=== PATIENT | female | born 1965 | race American Indian/Alaskan Native ===

== ENCOUNTER 2016-07-27 15:55 | Outpatient (CLI) | payer OTHER ==
--- NOTE | 2016-07-28 14:00 | Mammography Report ---
BILATERAL DIGITAL SCREENING MAMMOGRAM with CAD: 07/27/16 15:55:00 CLINICAL: Routine screening. COMPARISON:05/20/15 FINDINGS: The breasts are heterogeneously dense, which may obscure small masses. A left upper asymmetry requires additional imaging.No architectural distortion or suspicious calcifications.The right breast is negative. IMPRESSION: Left asymmetry requiring further workup. BI-RADS CATEGORY: 0 -- Additional Imaging Evaluation Required RECOMMENDATION: Recall for left mediolateral , exaggerated CC and spot compression MLO views and left ultrasound if needed. ACR BI-RADS MAMMOGRAPHIC CODES: 0 = Needs additional imaging evaluation; 1 = Negative; 2 = Benign; 3 = Probably benign; 4 = Suspicious; 5 = Malignant; 6 = Known biopsy-proven malignancy COMMENT: 1. Dense breast tissue, i.e., adenosis, fibrocystic changes, etc., may obscure an underlying neoplasm. 2. Approximately 10% of cancers are not detected with mammography. 3. A negative mammography report should not delay biopsy if a clinically suspicious mass is present. COMMENT: Patient follow-up letters are generated via our [employer] application.
== END 2016-07-27 15:56 | disposition home or self-care (01) ==
LOC: SPVWC 15:55
PROVIDERS: ATTEND Obstetrics & Gynecology
DX: Z12.31 Encounter for screening mammogram for malignant neoplasm of breast (principal)
CPT/HCPCS: 77067; G0202

== ENCOUNTER 2016-08-12 15:13 | Outpatient (CLI) | payer OTHER ==
--- NOTE | 2016-08-12 16:08 | Mammography Report ---
LEFT DIGITAL DIAGNOSTIC MAMMOGRAM and LEFT BREAST ULTRASOUND: 08/12/16 15:13:00 CLINICAL: Recalled for asymmetry. COMPARISON:07/27/16 screening FINDINGS: ML, exaggerated CC and spot compression MLO views were performed. Partial effacement of asymmetry on the spot view and a persistent asymmetry in the lateral view. Ultrasound of the upper left breast was performed and demonstrated no mass, cyst or shadowing to correlate with the mammographic asymmetry. A retroareolar cyst at 2 o'clock measures 7 x 4 x 7 mm. IMPRESSION: A probably benign upper asymmetry. BI-RADS CATEGORY: 3--Probably Benign RECOMMENDATION: Six month followup left mammogram and ultrasound if needed. ACR BI-RADS MAMMOGRAPHIC CODES: 0 = Needs additional imaging evaluation; 1 = Negative; 2 = Benign; 3 = Probably benign; 4 = Suspicious; 5 = Malignant; 6 = Known biopsy-proven malignancy COMMENT: 1. Dense breast tissue, i.e., adenosis, fibrocystic changes, etc., may obscure an underlying neoplasm. 2. Approximately 10% of cancers are not detected with mammography. 3. A negative mammography report should not delay biopsy if a clinically suspicious mass is present. COMMENT: Patient follow-up letters are generated via our [employer] application.
--- NOTE | 2016-08-12 16:12 | Ultrasound Report ---
LEFT DIGITAL DIAGNOSTIC MAMMOGRAM and LEFT BREAST ULTRASOUND: 08/12/16 15:13:00 CLINICAL: Recalled for asymmetry. COMPARISON:07/27/16 screening FINDINGS: ML, exaggerated CC and spot compression MLO views were performed. Partial effacement of asymmetry on the spot view and a persistent asymmetry in the lateral view. Ultrasound of the upper left breast was performed and demonstrated no mass, cyst or shadowing to correlate with the mammographic asymmetry. A retroareolar cyst at 2 o'clock measures 7 x 4 x 7 mm. IMPRESSION: A probably benign upper asymmetry. BI-RADS CATEGORY: 3--Probably Benign RECOMMENDATION: Six month followup left mammogram and ultrasound if needed.
== END 2016-08-12 15:14 | disposition home or self-care (01) ==
LOC: SPVWC 15:13
PROVIDERS: ATTEND Obstetrics & Gynecology
DX: N60.02 Solitary cyst of left breast (principal); N64.89 Other specified disorders of breast; R92.8 Other abnormal and inconclusive findings on diagnostic imaging of breast
CPT/HCPCS: 76642; G0206

== ENCOUNTER 2017-10-14 15:00 | Outpatient (CLI) | payer OTHER ==
--- NOTE | 2017-10-15 11:09 | Mammography Report ---
BILATERAL DIGITAL SCREENING MAMMOGRAM with CAD: 10/14/17 15:00:00 CLINICAL: Routine screening. COMPARISON:07/27/16 FINDINGS: The breasts are heterogeneously dense, which may obscure small masses. No mass, architectural distortion or suspicious calcifications. IMPRESSION: No mammographic evidence of malignancy. BI-RADS CATEGORY: 1 - - Negative RECOMMENDATION: Routine mammographic screening in one year. COMMENT: Patient follow-up letters are generated by our [employer] application.
== END 2017-10-14 15:01 | disposition home or self-care (01) ==
LOC: SPVWC 15:00
PROVIDERS: ATTEND Obstetrics & Gynecology
DX: Z12.31 Encounter for screening mammogram for malignant neoplasm of breast (principal)
CPT/HCPCS: 77067

== ENCOUNTER 2018-10-24 16:01 | Outpatient (CLI) | payer OTHER ==
--- NOTE | 2018-10-25 10:06 | Mammography Report ---
DIGITAL SCREENING MAMMOGRAM WITH CAD, 10/24/2018 INDICATION: Routine screening mammography. TECHNIQUE: Digital bilateral 2D mammography was obtained in the craniocaudal and mediolateral obliq ue projections. This examination was interpreted with the benefit of Computer-Aided Detection analysi s. COMPARISON: 10/14/2017 FINDINGS: Breast Density: There are scattered areas of fibroglandular density. There is no evidence of dominant mass, suspicious calcifications or architectural distortion in eithe r breast. IMPRESSION: BI-RADS Category 1: Negative. No mammographic evidence of malignancy. Recommend routine screening m ammography in one year. A "normal" or negative report should not discourage follow up or biopsy of a clinically significant f inding. A written summary of these findings will be mailed to the patient. The patient will be entered into a mammography reporting system which will generate a reminder letter for the patient's next appointmen t at the appropriate interval. The [employer] recommends yearly mammograms starting at age 40 and continuing as l nereyda as a woman is in good health. Breast MRI is recommended for women with an approximate 20-25% or greater lifetime risk of breast cancer, including women with a strong family history of breast or ova humera cancer or who have been treated for Hodgkin's disease. Signer Name: Earl Crews MD Signed: 10/25/2018 7:53 AM Workstation Name: [id number]
== END 2018-10-24 16:02 | disposition home or self-care (01) ==
LOC: SPVWC 16:01
PROVIDERS: ATTEND Obstetrics & Gynecology
DX: Z12.31 Encounter for screening mammogram for malignant neoplasm of breast (principal)
CPT/HCPCS: 77067